=== PATIENT | female | born 2000 | race Caucasian/White ===

== ENCOUNTER 2021-04-10 23:52 | Inpatient (IN) ==
[2021-04-11 00:45] LABS: Bacteria,Urine Few per hpf (None-Few); Bilirubin,Urine Negative (Negative); Blood,Urine Small (Negative); Clarity,Urine Turbid (Clear); Color,Urine Yellow (Yellow); Glucose,Urine (UA) Normal (Normal); Ketones,Urine Negative (Negative); Leukocyte Esterase,Urine Small (Negative); Mucus,Urine Few per lpf (None-Few); Nitrite,Urine Negative (Negative); Protein,Urine Trace mg/dL (Neg-Trace); Specific Gravity,Urine 1.018 (1.010-1.025); Squamous Epithelial Cell,Urine Many per hpf (None-Few); Urobilinogen,Urine Normal (Normal)
[2021-04-11 00:48] LABS: Amphetamine Screen,Urine Negative ng/mL (Cutoff=1000); Barbiturate Screen,Urine Negative ng/mL (Cutoff=200); Benzodiazepines Screen,Urine Negative ng/mL (Cutoff=200); Cannabinoid Screen,Urine Negative ng/mL (Cutoff = 50); Cocaine Screen,Urine Negative ng/mL (Cutoff= 300); Opiate Screen,Urine Negative ng/mL (Cutoff=300); Phencyclidine Screen,Urine Negative ng/mL (Cutoff=25)
[2021-04-11] MEDS ORDERED: Potassium Chloride Elixir 20 MEQ/15 ML UDC PO ONE (01:29)
[2021-04-11 04:33] LABS: Influenza A PCR Negative (Negative); Influenza B PCR Negative (Negative); Resp. Syncytial Virus PCR Negative (Negative)
[2021-04-11 04:43] LABS: SARS-CoV-2 by PCR (In House) Negative (Negative)
[2021-04-11] MEDS ORDERED: *HR* LORazepam 2 MG/ML VIAL IM PRN (04:58)
[2021-04-11] MEDS ORDERED: traZODone 50 MG TABLET PO PRN (04:58)
[2021-04-11] MEDS ORDERED: Haloperidol Lactate 5 MG/ML VIAL IM PRN (04:58)
[2021-04-11] MEDS ORDERED: *HR* LORazepam 1 MG TABLET PO PRN (04:58)
[2021-04-11] MEDS ORDERED: hydrOXYzine pamoate 25 MG CAPSULE PO PRN (04:58)
[2021-04-11] MEDS ORDERED: haloperidoL 5 MG TABLET PO PRN (04:58)
[2021-04-11] MEDS: Acetaminophen 325 MG TABLET PO PRN ×2 (06:11→13:14)
[2021-04-11] MEDS ORDERED: Mag Hydrox/Al Hydrox/Simeth 30 ML UDC PO PRN (08:39)
[2021-04-11] MEDS ORDERED: MOM Conc 10 ML UD.LIQ PO PRN (08:39)
[2021-04-11] MEDS: cephALEXin 500 MG CAPSULE PO SCH ×2 (13:14→21:17)
[2021-04-11] MEDS: OXcarbazepine 150 MG TABLET PO SCH ×2 (13:17→21:16)
[2021-04-11] MEDS: QUEtiapine Fumarate 100 MG TABLET PO PRN (21:16)
[2021-04-11] MEDS: cloNIDine HCL 0.1 MG TABLET PO SCH (21:16)
[2021-04-12] MEDS: cephALEXin 500 MG CAPSULE PO SCH ×2 (08:25→20:15)
[2021-04-12] MEDS: OXcarbazepine 150 MG TABLET PO SCH ×3 (08:25→20:15)
[2021-04-12] MEDS: Acetaminophen 325 MG TABLET PO PRN (20:14)
[2021-04-12] MEDS: cloNIDine HCL 0.1 MG TABLET PO SCH (20:15)
[2021-04-12] MEDS: QUEtiapine Fumarate 100 MG TABLET PO PRN (20:15)
[2021-04-13] MEDS: cephALEXin 500 MG CAPSULE PO SCH ×2 (10:41→20:35)
[2021-04-13] MEDS: OXcarbazepine 150 MG TABLET PO SCH ×3 (10:42→20:35)
[2021-04-13 10:47] VITALS: O2SAT 100
[2021-04-13] MEDS: Acetaminophen 325 MG TABLET PO PRN (19:10)
[2021-04-13 20:16] VITALS: BP 115/78; PULSE 89; TEMP 98.2
[2021-04-13] MEDS: cloNIDine HCL 0.1 MG TABLET PO SCH (20:40)
== END 2021-04-13 21:22 | disposition home or self-care (01) | DRG 751 ==
LOC: EMEROOARM 23:52 → 1ANU 04-11 04:52
PROVIDERS: ADMIT Psychiatry & Neurology Psychiatry; ATTEND Psychiatry & Neurology Psychiatry